=== PATIENT | male | born 1955 | race Hispanic/Latino ===

== ENCOUNTER 2019-01-02 08:34 | Outpatient (CLI) | payer OTHER ==
--- NOTE | 2019-01-02 11:53 | CT ---
FExam: Chest CT with contrast Abdomen CT with contrast Pelvic CT with contrast HISTORY: Lymphoma. Correlation: None COMPARISON: None FINDINGS: Chest CT: Mediastinum: Nonspecific, nonenlarged lymph nodes. No evidence of lymphadenopathy by size criteria. N o mass or hematoma. Aorta: Normal caliber. Minimal atherosclerosis. No aneurysm or dissection. Heart: Calcification of the mitral annulus and aortic valve. Coronary calcifications are noted. Supriya l heart size. No significant pericardial fluid. Trachea and central bronchi: Patent Pleural spaces: No significant pleural fluid Right lung: Patchy groundglass opacities. Pleural-based opacity along the lateral aspect of the right middle lobe measuring 3.1 x 1.5 cm. Additional opacities are noted which have a somewhat more linear appearance and are near the minor fissure.. Left lung:Patchy groundglass opacities. 5 mm focal opacity in the left upper lobe. Pneumothorax: None Abdomen CT: Gallbladder: Surgically absent Portal vein: Patent Liver: Appropriate enhancement. Spleen: Appropriate enhancement Pancreas: Appropriate enhancement Adrenal glands: Appropriate enhancement Lymphadenopathy: No gastrohepatic, retrocrural or periportal lymphadenopathy Kidneys: Symmetric enhancement. No obstructive uropathy Mesentery: No mass, lymphadenopathy, free air or free fluid Alimentary canal: Gastric mucosa, duodenum and multiple normal caliber small bowel loops are identifi ed. Ileocecal junction is normal. Normal caliber appendix. Contrast and fecal material in a nondisten ded, nondilated colon. No mucosal abnormality. Diverticulosis, without evidence of diverticulitis. Pelvis CT: No pelvic mass, lymphadenopathy, free air or free fluid. Unremarkable urinary bladder. Mild prostate hypertrophy Osseous structures:No lytic or blastic lesions IMPRESSION: 1. No significant lymphadenopathy in the chest, abdomen or pelvis 2. Lung parenchymal groundglass opacities which may be due to edema or atypical infection. 3. Opacities in the middle lobe which may represent airspace disease, atelectasis or atypical infect ion. Follow-up to resolution.. Transcribed Date/Time: 01/02/2019 12:09 PM
== END 2019-01-02 08:35 | disposition home or self-care (01) ==
LOC: SCSCT 08:34
PROVIDERS: ATTEND Internal Medicine Medical Oncology
DX: D59.9 Acquired hemolytic anemia, unspecified (principal); K74.60 Unspecified cirrhosis of liver; I89.0 Lymphedema, not elsewhere classified; D69.6 Thrombocytopenia, unspecified
CPT/HCPCS: 71260; 74177

== ENCOUNTER 2019-08-30 10:38 | Emergency (ER) | payer OTHER ==
[2019-08-30] MEDS ORDERED: Furosemide 40 MG/4 ML VIAL ONE (11:21)
[2019-08-30 11:51] LABS: #Eosinphils 0.1 thou/uL (0.0-0.7); #Lymphocytes 0.3 thou/uL (1.20-3.40); #Monocytes 0.3 thou/uL (0.11-0.59); #Neutrophils 4.6 thou/uL (1.40-6.50); %Eosinophils 1.6 % (0.0-10.0); %Lymphocytes 5.5 % (21.0-51.0); %Monocytes 5.6 % (0.0-10.0); %Neutrophils 87.2 % (42.0-75.0); Hemoglobin 8.5 g/dL (14.0-18.0); Mean Corpuscular HGB CONC 34.5 g/dL (32.0-36.0); Mean Corpuscular Hemoglobin 31.6 pg (27.0-31.0); Mean Corpuscular Volume 91.5 fL (78.0-98.0); Mean Platelet Volume 8.6 fL (7.4-10.4); Platelet Count 83 thou/uL (130-400); RBC Distribution Width 15.6 % (11.5-14.5); Red Blood Cell (RBC) Count 2.69 mill/uL (4.70-6.10); White Blood Cell (WBC) Count 5.2 thou/uL (4.8-10.8)
[2019-08-30 12:10] LABS: ALT (SGPT) 10 U/L (8-55); AST (SGOT) 13 U/L (5-34); Albumin 3.6 g/dL (3.4-4.8); Alkaline Phosphatase 207 U/L (40-110); Anion Gap 11 mmol/L (10-20); BUN (Urea Nitrogen) 15 mg/dL (8.4-25.7); Bilirubin, Total 0.6 mg/dL (0.2-1.2); CK (CPK) 18 U/L (30-200); Calc. Creatinine Clearance 0 mL/min (70-130); Carbon Dioxide 32 mmol/L (23-31); Chloride 102 mmol/L (98-107); Estimated GFR-MDRD Greater than 90; Globulin 2.1 g/dL (2.4-3.5); Glucose 144 mg/dL (80-115); Potassium 3.7 mmol/L (3.5-5.1); Protein, Total 5.7 g/dL (5.8-8.1); Sodium 141 mmol/L (136-145)
[2019-08-30 13:13] LABS: CKMB 1.3 ng/mL (0-6.6)
[2019-08-30 13:47] LABS: Anion Gap 12 mmol/L (10-20); BUN (Urea Nitrogen) 15 mg/dL (8.4-25.7); Calc. Creatinine Clearance 0 mL/min (70-130); Calcium 9.3 mg/dL (7.8-10.44); Carbon Dioxide 32 mmol/L (23-31); Chloride 101 mmol/L (98-107); Estimated GFR-MDRD Greater than 90; Glucose 120 mg/dL (80-115); Potassium 3.7 mmol/L (3.5-5.1); Sodium 141 mmol/L (136-145)
--- NOTE | 2019-09-01 21:56 | EKG ---
Test Reason : Blood Pressure : / mmHG Vent. Rate : 072 BPM Atrial Rate : 072 BPM P-R Int : 148 ms QRS Dur : 106 ms QT Int : 416 ms P-R-T Axes : 016 086 010 degrees QTc Int : 455 ms Normal sinus rhythm Incomplete right bundle branch block Cannot rule out Inferior infarct , age undetermined Abnormal ECG Confirmed by ESTEFANIA JENNINGS DO ([id number]), international editorial producer ASHOK LAY ([id number]) on 09/01/2019 9:54:53 PM Referred By: Confirmed By:ESTEFANIA JENNINGS DO
== END 2019-08-30 15:05 | disposition short-term general hospital (02) ==
LOC: ERS 10:38
DX: J96.91 Respiratory failure, unspecified with hypoxia (principal); J81.1 Chronic pulmonary edema; I48.91 Unspecified atrial fibrillation; I10 Essential (primary) hypertension; Z87.891 Personal history of nicotine dependence; Z79.899 Other long term (current) drug therapy; Z79.01 Long term (current) use of anticoagulants; Z86.73 Personal history of transient ischemic attack (TIA), and cerebral infarction without residual deficits
CPT/HCPCS: 36415; 82550; 82553; 83605; 83880; 84484; 93005; 94760; 96374; J1940